=== PATIENT | male | born 1975 | race Caucasian/White ===

== ENCOUNTER → 2017-08-07 | Day surgery (SDC) | payer OTHER ==
[2017-08-05 08:18] VITALS: Ht 180.3 cm; Wt 88.6 kg
--- NOTE | 2017-08-06 12:30 | History and Physical: Surg Cnt ---
History & Physical Date Aug 06, 2017. Chief Complaint sinus infections History of Present Illness The patient is a 42 year old male with complaints of chronic sinusitis Additional History Hepatic Disease: No Endocrine Disorder: No Kidney Disease: No Hypertension: No Heart Disease: No Bleeding Tendencies: No Infectious Diseases: No Allergies Coded Allergies: NO KNOWN DRUG ALLERGIES (Verified Allergy, Unknown, ., 08/05/17) Home Medications No Active Prescriptions or Reported Meds Physical Examination Skin: warm/dry, no rash Eyes: normal inspection, EOMI, sclerae normal ENT: normal ENT inspection, pharynx normal Head: normocephalic, atraumatic Neck: supple, no adenopathy, trachea midline Respiratory/Chest: lungs clear, normal breath sounds, no respiratory distress Cardiovascular: regular rate, rhythm, no edema, no murmur Abdomen / GI: normal bowel sounds, non tender Back: normal inspection Extremities: normal inspection, normal range of motion Neurologic/Psych: no motor/sensory deficits, alert, normal reflexes, oriented x 3 Diagnosis chronic sinusitis Plan of Treatment endoscopic sinus surgery
[~2017-08-07] VITALS: Ht 180.3 cm; Wt 88.6 kg
[~2017-08-07] MED LIST: ATROPINE SULFATE 0.1 MG/ML 5ML SYR IV PRN; BACITRACIN OINT 15 GM TUBE ONE; CEFAZOLIN 2000 MG/60 ML D5W IV SCH; DEXAMETHASONE SOD INJ 4 MG/ML VIAL ONE; EpHEDrine SULFATE INJ 50 MG/ML AMP IV PRN; EpINEphrine INJ 1MG/ML AMP 1 MG/ML AMP ONE; FENTANYL CITRATE INJ 50 MCG/1 ML 2 ML VIAL ONE; GELATIN SPONGE 12-7MM ONE; LACTATED RINGER'S 1000ML 1,000 ML IV SCH; LIDO 2%/EPINEPHRINE 1:100000 20 ML VIAL INFIL ONE; LIDOCAINE 4% MPF SOAK 5 ML = 1 DOSE TOP ONE; LIDOCAINE HCL 2% 2 ML VIAL (20MG/ML) ONE; MIDAZOLAM HCL 1 MG/ML 2ML VIAL ONE; ONDANSETRON INJ 2 MG/ML 2 ML VIAL ONE; OXYC-57 PO; OXYCODONE/ACETAMINOPHEN 5-325 TAB ONE; OXYCODONE/ACETAMINOPHEN 5-325 TAB PO PRN; PROPOFOL IV EMULSION 10 MG/ML 20 ML VIAL IV ONE; SODIUM CHLORIDE 0.9% 1000ML 1,000 ML IV SCH
--- NOTE | 2017-08-07 07:51 | History & Physical Bridge Note ---
H&P Re-Evaluation Bridge Note: I have examined the patient, reviewed the History & Physical and in the interval since the performance of the History & Physical I have noted the following changes of clinical significance: No changes noted
--- NOTE | 2017-08-07 10:27 | [facility] Operative Report ---
Operative Report Operative Date Aug 07, 2017. Pre-Operative Diagnosis Chronic Sinusitis Post-Operative Diagnosis same as preop Procedure(s) Performed Endoscopic Sinus Surgery Including Bilateral Sphenoid, Frontal, total ethmoidectomy and Maxillary Sinus antrostomies Surgeon Dr. Daily Planner/Scheduler Surgeon(s) none Estimated Blood Loss 50 ml Findings Polypoid mucosa Specimens A. Right Ethmoid Tissue Drains none Anesthesia LMA Complication(s) None Disposition Recovery Room / PACU Implants Four propel implants Indications 42-year-old with long history of recurrent and chronic sinusitis Description of Procedure The patient was brought to the operating room placed supine position. Gen. anesthesia was induced using LMA. He was draped and prepped in the usual sterile manner. [employer] device was calibrated and used for the entire procedure. The right sphenoid was cannulated with the guidewire with [employer] computer guidance and dilated using the 6 mm balloon as was the left sphenoid sinus. The right maxillary sinus could not be cannulated inch initially. The left maxillary sinus was cannulated with the guidewire and dilated using the 6 mm balloon. The left nasal frontal duct was cannulated with the guidewire with [employer] computer guidance and dilated using the 6 mm balloon. The guidewire was left in place as a marker as the catheter was withdrawn. Frontal sinusotomy was performed with the shaver couple with the [employer] device opening up the Edita nasi cell removing the anterior wall and then the posterior wall vac are nasi cell following the guidewire superiorly to the nasal frontal duct. The mucosa in the nasal frontal duct was left intact. The duct was redilated with the 6 mm balloon. At this point total ethmoidectomy was performed opening up the bullae ethmoidalis going through the ground lamella into the posterior ethmoid air cells delineating the skull base superiorly and lamina papyracea bilaterally exonerating all the posterior and then all the anterior ethmoid air cells up to the previously dilated nasal frontal duct. The left maxillary sinus was opened by removing polypoid tissue at the posterior border which is the anterior wall the bullae ethmoidalis. The sphenoid was opened by removing the polypoid mucosa at the anterior face at the inferior border of the superior turbinate. The right frontal sinus could not be cannulated initially and had to be found by using the shaver to remove the anterior wall and then the posterior wall the Edita nasi cell. An angled suction was couple with the [employer] device to find the nasal frontal duct. Then the balloon catheter was guided and with the [employer] device into the nasal frontal duct and the nasal frontal duct was dilated with the 6 mm balloon. Again the total ethmoidectomy was performed in a similar manner to the other side. The maxillary sinus could not be cannulated and had to be found using the pointer and the seeker opening up the maxillary sinus ostia which had to be further opened to a 5 mm opening using the shaver couple with the [employer] device. The sphenoid was opened in a similar manner to the other side. Propel stents were placed with 2 mini stents in the nasal frontal ducts and then 2 regular stents in the ethmoid cavity. The patient her procedure well and was taken recovery are in satisfactory condition. I attest to the content of the Intraoperative Record and any orders documented therein. Any exceptions are noted below.
--- NOTE | 2017-08-07 10:29 | Discharge Instructions-SurgCtr ---
Discharge Instructions Date of Service Aug 07, 2017. Visit Reason for Visit: Chronic Sinusitis Discharge Discharge Diagnosis / Problem: same Discharge Goals Goal(s): Improve disease control Activity Recommendations Activity Limitations: resume your previous activity Anesthesia . Post Anesthesia Instructions: If you have had General Anesthesia or IV Sedation: * Do not drive today. * Resume driving when surgeon permits. * Do not make important decisions or sign legal documents today. * Call surgeon for: 1. Temperature elevations greater than 101 degrees F. 2. Uncontrollable pain. 3. Excessive bleeding. 4. Persistent nausea and vomiting. 5. Medication intolerance (nausea, vomiting or rash). * For nausea and vomiting use only clear liquids such as: tea, soda, bouillon until nausea subsides, then gradually increase diet as tolerated. * If you have any concerns or questions, call your surgeon's office. If physician is unavailable and it is an emergency, call 911 or go to the nearest emergency room. . Instructions / Follow-Up Instructions / Follow-Up ACTIVITY RECOMMENDATIONS: * Being up and around is good, but no strenuous activity, heavy lifting or physical exertion for one week. * Keep your head elevated 30 degrees when lying down or sleeping. * Do not blow your nose for 48 hours, sniff back instead. * Avoid hot showers. OVER THE COUNTER MEDICATIONS: * You may use Tylenol * Avoid aspirin or aspirin containing products, e.g. as they may increase bleeding. SPECIAL CARE INSTRUCTIONS: * Expect to have bloody drainage from your nose and/or down your throat for one to three days. Change drip pad as needed. * Begin irrigating your nose with saline solution today, at least six to ten times per day and sniff back to help remove old clots or crust. * You may experience nasal and facial congestion, pain and pressure, this is normal. * Please call with any significant and/or progressive pain, redness, swelling around the eyes, visual changes, fever of 101.5 degrees F, active bleeding or any problems or concerns. * If active bleeding occurs, spray the nose three times at one minute intervals with Afrin spray and call or cell phone: . If unable to reach the doctor, go to the nearest Emergency Department. Special Diet: * Avoid extremely hot fluids. FOLLOW UP VISIT: Follow-up Visit with Dr. Daily If not already scheduled, please call to schedule. Diet Recommendations Home Diet: no limitations Procedures Procedures Performed: Endoscopic Sinus Surgery Including Bilateral Sphenoid, Frontal, total ethmoidectomy and Maxillary Sinus antrostomies Pending Studies Studies pending at discharge: no Medical Emergencies . Who to Call and When: Medical Emergencies: If at any time you feel your situation is an emergency, please call 911 immediately. . Non-Emergent Contact Non-Emergency issues call your: Primary Care Provider . . "Provider Documentation" section prepared by Fabiola Daily. . [place] Drug Monitoring Program Search Results: no issues identified
[2017-08-07] MEDS: FENTANYL CITRATE INJ 50 MCG/1 ML 2 ML VIAL IV PRN ×2 (11:00→11:12)
--- NOTE | 2017-08-07 11:29 | Anesthesia Progress Nt - [facility] ---
Anesthesia Post Op Note Date & Time Aug 07, 2017 at 11:28 Vital Signs Pain Intensity: 2 Vital Signs Past 12 Hours Date Time Temp Pulse Resp B/P (MAP) Pulse Ox O2 Delivery O2 Flow Rate FiO2 08/07/17 11:18 36.8 66 12 127/76 95 Room Air 08/07/17 11:16 67 15 95 08/07/17 11:16 68 15 08/07/17 11:15 126/72 08/07/17 11:11 77 23 96 08/07/17 11:11 76 23 08/07/17 11:10 132/81 08/07/17 11:06 71 12 98 08/07/17 11:06 70 12 08/07/17 11:05 112/77 08/07/17 11:01 64 11 08/07/17 11:01 64 11 96 08/07/17 11:00 110/67 08/07/17 10:56 68 15 08/07/17 10:56 66 15 98 08/07/17 10:55 118/84 08/07/17 10:51 66 17 98 08/07/17 10:51 67 17 08/07/17 10:50 109/70 08/07/17 10:46 71 14 08/07/17 10:46 72 14 98 08/07/17 10:45 119/79 08/07/17 10:41 69 17 08/07/17 10:41 69 17 100 08/07/17 10:40 123/78 08/07/17 10:36 63 13 96 08/07/17 10:36 64 13 08/07/17 10:35 124/72 08/07/17 10:31 66 13 95 08/07/17 10:31 67 13 08/07/17 10:30 123/77 08/07/17 10:26 69 14 08/07/17 10:26 69 14 97 08/07/17 10:25 120/78 08/07/17 10:21 36.2 73 20 131/75 96 Humidified Oxygen 6 Mask 08/07/17 10:21 73 08/07/17 10:21 73 131/75 96 08/07/17 06:47 36.6 53 16 116/73 (87) 97 Room Air Notes Mental Status: alert / awake / arousable, participated in evaluation Pt Amnestic to Procedure: Yes Nausea / Vomiting: adequately controlled Pain: adequately controlled Airway Patency, RR, SpO2: stable & adequate BP & HR: stable & adequate Hydration State: stable & adequate Anesthetic Complications: no major complications apparent
[2017-08-07 11:36] VITALS: TEMP 36.7
[2017-08-07 12:18] VITALS: BP 123/76; PULSE 64; O2SAT 96
== END | disposition home or self-care (01) ==
LOC: X.SURG 06:29
PROVIDERS: ATTEND Otolaryngology
DX: J32.9 Chronic sinusitis, unspecified (principal)